=== PATIENT | female | born 1940 | race Caucasian/White ===

== ENCOUNTER → 2017-04-17 | Outpatient (CLI) | payer MEDICARE, MEDICAID ==
[~2017-04-17] MED LIST: CELEBREX 200MG200 MG PO; CIPRO 500MG TA500 MG PO; COZAAR25 M1 PO; CYCLOBENZAPRINE10 MG PO; DOXYCYCLINE HY100 M4 PO; HYDROCODONE-APA1 TA1 PO; LIPITOR10 MG PO; MEDROL 4MG. DOSE4 MG PO; NEURONTIN 300M300 MG PO; OMNICEF 300 MG300 MG PO; PLAVIX75 M1 PO; PREDNISONE 10MG10 MG PO; PRENATAL VITAMI1 TA3 PO; ROBITUSSIN NIG118 ML PO; TESSALON PERLE100 M1 PO; TESSALON PERLE100 MG PO; TIROSINT50 MCG PO; TOPROL XL 50MG50 MG PO; VICODIN 5/500 T1 TAB PO
--- NOTE | 2017-04-17 14:59 | RADIOLOGY REPORT PS360 ---
CHEST(2 VIEWS-NOT PORTABLE) HISTORY: WGT LOSS ORDERING PHYSICIAN: Moy Dallas APRN PATIENT AGE: 76 years COMPARISON: 07/13/2016 FINDINGS: The cardiomediastinal silhouette and pulmonary vascularity are within normal limits. COPD/emphysema with chronic pulmonary fibrotic changes as before. No lobar consolidation or collapse. Coronary artery stent in the LAD. Lower thoracic curvature convex right. IMPRESSION: COPD with chronic changes with pulmonary fibrosis. No change with no acute finding
[2017-04-17 15:32] LABS: HEMOGLOBIN 14.3 g/dL (12.2-16.2); LYMPH # 1.7 K/mm3 (0.7-4.5)
[2017-04-17 16:49] LABS: BUN 19 mg/dL (7-18); GFR (ESTIMATED) 70 ML/MIN (59-)
== END ==
LOC: RAD 14:15
PROVIDERS: Nurse Practitioner Family
DX: I10 Essential (primary) hypertension (principal); R63.4 Abnormal weight loss

== ENCOUNTER → 2017-05-04 | Day surgery (SDC) | payer MEDICARE, MEDICAID ==
[~2017-05-04] VITALS: Ht 152.4 cm; Wt 62.6 kg
[2017-05-04 10:39] VITALS: BP 115/55
[2017-05-04 11:16] VITALS: BP 115/55
[2017-05-04 11:17] VITALS: BP 112/69
--- NOTE | 2017-05-04 11:25 | Procedure Note ---
Procedure detail Date of procedure: 05/04/17 Anesthesiologist: Mauricio Hendrickson Complications: None Pre-procedure diagnosis: Degenerative disc disease lumbar spine multiple levels. Lumbar radiculopathy symptoms. Post-procedure diagnosis: Same. Indications for procedure: Very pleasant 76-year-old white female that has responded extremely well to medial branch blocks/facet blocks at L3-4, L4-5, L5-S1 bilateral in the past. She presents today for repeat medial branch blocks/facet blocks at the L3-4, L4- 5, L5-S1 level. Procedure detail: Informed consent was obtained and the risk and benefits of the procedure was explained to the patient. Patient was taken to the procedure room where noninvasive monitors were placed, including noninvasive blood pressure cuff as well as pulse oximeter. The area over the lumbar spine was cleansed using chlorhexidine as a cleansing solution. I anesthetized the skin and subcutaneous tissues with 1% Lidocaine. I placed 22-gauge spinal needles into the facet joint / medial branches of [L3-L4, L4-L5, and L5-S1] bilaterally. Needle placement was confirmed with fluoroscopy. After confirmation of needle placement, each site was injected with 1 mL of 1% lidocaine and 0.25 % Marcaine and 10 mg of Depo- Medrol. A total of 80 mg of depo medrol was used for bilateral medial branch blocks of [L3-L4, L4-L5, and L5-S1] bilaterally. Patient tolerated the procedure without difficulty. There were no complications. Plan and disposition: Patient was reevaluated 10 minutes post procedure. She is doing very well. She' ll return to see us on an as-needed basis. at [id number]
[2017-05-04 11:46] VITALS: BP 136/72
== END ==
LOC: PM 10:26
PROC: 3E0T3BZ Introduction of Anesthetic Agent into Peripheral Nerves and Plexi, Percutaneous Approach (ICD-10-PCS; principal; 2017-05-04)
PROC: 3E0T33Z Introduction of Anti-inflammatory into Peripheral Nerves and Plexi, Percutaneous Approach (ICD-10-PCS; 2017-05-04)
PROC: BR161ZZ Fluoroscopy of Lumbar Facet Joint(s) using Low Osmolar Contrast (ICD-10-PCS; 2017-05-04)
DX: M51.16 Intervertebral disc disorders with radiculopathy, lumbar region (principal); M47.896 Other spondylosis, lumbar region
CPT/HCPCS: J1040